=== PATIENT | female | born 1965 | race Caucasian/White ===

== ENCOUNTER 2017-05-23 21:00 | Observation (INO) | payer SELFPAY ==
--- NOTE | ~2017-05-23 | HP ---
History And Physical [place] [id number] [facility] [place] [place]. [address] NAME: ILYA BROOKS : 65 STATUS : ADM Loulou PAT#: [id number] AGE: 52 ADM/REG DATE : 05/23/17 MR#: [id number] REPORT SERV DATE: 05/24/17 DICTATED BY: SHANIKA SOLIS DATE: 05/23/17 REPORT STATUS : Draft TRANSCRIBED BY: MODL DATE: 05/23/17 DATE OF ADMISSION: 05/23/2017 CHIEF COMPLAINT: A 52-year-old female presenting with vertigo, confusion, and left-sided weakness. HISTORY OF PRESENTING ILLNESS: The patient's history was obtained through careful interview with the patient and sister, coupled with review of [facility] medical records. The patient states that for about a week, she has had symptoms on and off. One of her main symptoms has been anxiety as well as fatigue and lack of energy. She has also had intermittent lightheaded spells and vertigo. Today, she had vertigo that became debilitating to the point where she could not even sit up. She describes nausea and vomiting today, a headache mostly felt in her forehead about 8 to 10 out of 10 severity that comes and goes. On the day prior to admission, she had a spell, where she had dysarthria and became intermittently confused. She has also had intermittent left-sided weakness, but no facial droop. For about a week, now she has had blurry vision on and off as well, but no double vision and no change in vision at this time. REVIEW OF SYSTEMS: Otherwise, a 14-point review of systems was obtained and was negative. PAST MEDICAL HISTORY: 1. Depression and anxiety. 2. Hiatal hernia. 3. Neuropathy. 4. No cardiac disease. No lung disease. PAST SURGICAL HISTORY: Tubal ligation. ALLERGIES: NO KNOWN DRUG ALLERGIES. SOCIAL HISTORY: Is . Lives alone. Works in [employer] at [place]. Has children. The patient is a smoker. Quit alcohol more than a year ago. FAMILY HISTORY: Stroke. CURRENT MEDICATIONS: Include Cogentin 2 mg p.o. b.i.d., BuSpar 10 mg p.o. t.i.d., Prozac 40 mg p.o. daily, Neurontin 600 mg p.o. four times a day, naltrexone 50 mg p.o. daily, and History And Physical [address] [address] NAME: ILYA BROOKS : 65 STATUS : ADM Loulou PAT#: [id number] AGE: 52 ADM/REG DATE : 05/23/17 MR#: [id number] REPORT SERV DATE: 05/24/17 DICTATED BY: SHANIKA SOLIS DATE: 05/23/17 REPORT STATUS : Draft TRANSCRIBED BY: MODKalpesh DATE: 05/23/17 Zyprexa 15 mg p.o. q.h.s. PHYSICAL EXAMINATION: VITAL SIGNS: Temperature 98.3, pulse 87, blood pressure 120/79, respiratory rate 20, O2 saturation 99% on room air. GENERAL: A pleasant, cooperative female, in no evidence of acute distress. NEUROLOGICAL: Cranial nerves 2 through 12 are intact and symmetrical. Slight right-sided nystagmus, 5/5 strength in upper and lower extremities that is symmetrical. HEENT: Pupils equal, round, and reactive to light. No conjunctival pallor. No scleral icterus. Nares are patent. Oropharynx is clear of obstruction. Moist mucous membranes. NECK: Trachea midline. No thyromegaly. LYMPH: No cervical lymphadenopathy. No supraclavicular lymphadenopathy. RESPIRATORY: Clear to auscultation at bases. No wheezes, rales, or rhonchi. Normal respiratory effort. CARDIOVASCULAR: Regular rate and rhythm. No murmurs, rubs, or gallops. No extremity edema is appreciated. ABDOMEN: Soft, nontender, nondistended. Normal bowel sounds auscultated throughout. No hepatosplenomegaly. DERMATOLOGICAL: Warm and dry. EXTREMITIES: No pallor, no cyanosis. PSYCHIATRIC: Normal affect. Good mood. Alert and oriented x3. LABORATORY DATA: White blood cell count 7.9, hemoglobin 14, hematocrit 41, platelets 301. Sodium 138, potassium 3.6, chloride 104, bicarb 27, BUN 8, creatinine 0.71, glucose 114. Troponin negative. Liver enzymes within normal limits. STUDIES: 1. Chest x-ray by my own evaluation shows no acute cardiopulmonary process. 2. EKG by my own evaluation shows sinus rhythm, no major abnormalities. 3. CT scan of the brain without contrast shows no acute intracranial process. ASSESSMENT AND PLAN: 1. Transient ischemic attack with vertigo, dysarthria, left-sided weakness, confusion, and blurry vision on and off over a period of about a week, but then worsened today. Start aspirin. Obtain Neurology consult. Check an MRI of the brain, MRA of the brain with MRA of the carotid arteries. Check an echocardiogram. Check fasting lipid panel. Check telemetry. 2. Tobacco abuse. Counseled abstinence. 3. Anxiety and depression. Continue home medications. MACRINA/JAMES Shanika Solis M.D. History And Physical [address] [address] NAME: ILYA BROOKS : 65 STATUS : ADM Loulou PAT#: [id number] AGE: 52 ADM/REG DATE : 05/23/17 MR#: [id number] REPORT SERV DATE: 05/24/17 DICTATED BY: SHANIKA SOLIS DATE: 05/23/17 REPORT STATUS : Draft TRANSCRIBED BY: JAMES DATE: 05/23/17 / [id number] CC: Tiffanie Little M.D.
--- NOTE | ~2017-05-23 | DS ---
Discharge Summary [facility] [address] [place]. [address] NAME: ILYA BROOKS : 65 STATUS : DIS Loulou PAT#: [id number] AGE: 52 ADM/REG DATE : 05/23/17 MR#: [id number] REPORT SERV DATE: 05/27/17 DICTATED BY: JOSEFA LOWRY DATE: 05/26/17 REPORT STATUS : Draft TRANSCRIBED BY: MODL DATE: 05/26/17 ADMISSION DATE: 05/23/2017 DISCHARGE DATE: 05/26/2017 HISTORY OF PRESENT ILLNESS: Ms. Brooks is a 52-year-old female with a history of depression and anxiety, who presented to the hospital with a complaint of vertigo and left-sided weakness. For further details, please refer to H and P dictated by Dr. Jose Foreman on 05/24/2017. HOSPITAL COURSE: Upon presentation to the hospital, the patient was admitted under Hospitalist Service with presumptive diagnosis of TIA. Neurology was subsequently consulted. For further details, please refer to consultation note by Neurology dictated by Dr. Holm on 05/25/2017. The patient had brain imaging including MRI of the brain and MRA, which were negative. A LUIS ARMANDO obtained was also negative. CT head without contrast was also negative. On physical exam, the patient has normal neurologic exam. Given the diagnosis of TIA, the patient was subsequently started on aspirin. Despite negative workup, the patient still complained of nausea and vertigo. There was concern for posterior circulation CVA; however, given normal physical exam and given normal MRI and MRA of the brain, that diagnosis was excluded. Likely etiology of her symptom is likely peripheral vertigo, specifically benign positional paroxysmal vertigo per Neurology standpoint. Recommend ENT followup as outpatient. Given conclusion of workup, we will have the patient evaluated by Physical Therapy for an Apley's maneuver and we will subsequently discharge the patient after that. Plan has been discussed with the patient, who voices understanding and is agreeable with this plan. DISCHARGE DIAGNOSES: 1. Benign paroxysmal positional vertigo. 2. Transient ischemic attack. 3. Nausea and vomiting. 4. Tobacco abuse. 5. Obesity. DISCHARGE PHYSICAL EXAMINATION: VITAL SIGNS: Blood pressure 118/71 with a pulse of 78, respirations 22, O2 saturation 95% on room air. GENERAL: The patient is sitting in chair, in no acute distress. Appears stated age. HEENT: Normocephalic, atraumatic. Extraocular motors intact. Moist oral mucosa. Pupils round and reactive to light and accommodation. Extraocular motors intact. Anicteric sclerae. No conjunctival injection. No pallor. NECK: Trachea midline and symmetric. No JVD noted. No thyromegaly present. No lymphadenopathy noted. CHEST: No scars noted. Nontender to palpation. CARDIOVASCULAR: Regular rate and rhythm. S1, S2. No murmurs, rubs, or gallops. LUNGS: Clear to auscultation bilaterally. ABDOMEN: Obese abdomen also noted. EXTREMITIES: No cyanosis, no clubbing, no edema. NEUROLOGIC: Alert and oriented x3. Cranial nerves 2 through 12 grossly intact. No focal Discharge Summary [address] [address] NAME: ILYA BROOKS : 65 STATUS : DIS Loulou PAT#: [id number] AGE: 52 ADM/REG DATE : 05/23/17 MR#: [id number] REPORT SERV DATE: 05/27/17 DICTATED BY: JOSEFA LOWRY DATE: 05/26/17 REPORT STATUS : Draft TRANSCRIBED BY: JAMES DATE: 05/26/17 deficits appreciated. DISCHARGE MEDICATIONS: 1. Aspirin 81 mg p.o. daily. 2. BuSpar 10 mg p.o. three times a day. 3. Prozac 40 mg p.o. daily. 4. Gabapentin 600 mg p.o. four times a day. 5. Olanzapine 15 mg p.o. at bedtime. 6. Cogentin 2 mg p.o. twice a day p.r.n. 7. Naltrexone 50 mg p.o. daily. DISPOSITION: The patient will be discharged home. ACTIVITY: As tolerated. DIET: Regular. FOLLOWUP: The patient to follow up outpatient with ENT and primary care physician. Of note, greater than 30 minutes was spent providing counseling, medication reconciliation, discussion of case with consultants, and discussion of case with nurses. DICTATED BY: MD ANU Preston/JAMES Josefa Lowry MD / [id number] CC: Josefa Lowry MD
--- NOTE | ~2017-05-23 | CN ---
Consultation Report [facility] [address] [place]. [address] NAME: ILYA BROOKS : 65 STATUS : ADM Loulou PAT#: [id number] AGE: 52 ADM/REG DATE : 05/23/17 MR#: [id number] REPORT SERV DATE: 05/25/17 DICTATED BY: DHARA HOLM DATE: 05/25/17 REPORT STATUS : Draft TRANSCRIBED BY: MODL DATE: 05/25/17 NEUROLOGICAL CONSULTATION/EVALUATION DATE OF CONSULTATION: 05/25/2017 HISTORY OF PRESENT ILLNESS: This is a 52-year-old female, who was admitted through the emergency room with complaints of dizziness, confusion, left-sided weakness, and headache. The patient stated her symptoms started approximately a week prior to admission and she describes them as having dizziness on and off. In addition, the patient has had increase of her anxiety and fatigue, which she described as complete lack of energy. The patient stated that she has been sleeping a lot and has been not feeling well. Neurological consultation was requested since the patient's symptoms continued despite the treatment. The patient's MRI of the brain, which was also reviewed by me, was normal, showing no evidence of acute or distant strokes or any other space-occupying lesion. No midline shift and no evidence of past injuries. MRA of neck and brain was also normal. The patient's symptoms persisted despite the treatment with Antivert and scopolamine patch. PAST MEDICAL HISTORY: Significant history of depression and anxiety. History of hiatal hernia? "Neuropathy." SURGICAL HISTORY: Tubal ligation. ALLERGIES: NO KNOWN ALLERGIES. SOCIAL HISTORY: The patient lives alone. Is . Works in [employer] at [place]. Denied any exposure to heavy chemicals or toxin. She has no children. The patient continues smoking. She stated that she stopped any alcohol use approximately a year ago. FAMILY HISTORY: The patient's mother 20 years ago and as the patient described, choked on the piece of meat. The patient has one sister whom she does not keep contact with. MEDICATIONS: Prior to admission included Prozac 40 mg p.o. daily, Neurontin 600 mg p.o. four times a day, Cogentin 2 mg p.o. b.i.d., naltrexone 50 mg p.o. daily, and Zyprexa 15 mg p.o. daily. REVIEW OF SYSTEMS: A 14-point review of systems was positive for fatigue, trouble focusing, and increased sleeping. The patient felt alienated. Denied suicidal ideations. Denied difficulty with her speech and swallowing. Has not had any significant changes in her bowel or bladder control and has no problem with it; however has had increase of menopausal symptoms with irritability, night sweats, and intolerance to changes of environmental temperature. The patient stated she used to have chronic headaches "migraines," stating the last headache she had was a year ago, for which she had received "Dilaudid" and that had helped the patient. Consultation Report [facility] [address] [place]. [address] NAME: ILYA BROOKS : 65 STATUS : ADM Loulou PAT#: [id number] AGE: 52 ADM/REG DATE : 05/23/17 MR#: [id number] REPORT SERV DATE: 05/25/17 DICTATED BY: DHARA HOLM DATE: 05/25/17 REPORT STATUS : Draft TRANSCRIBED BY: JAMES DATE: 05/25/17 GENERAL PHYSICAL EXAMINATION: VITAL SIGNS: Blood pressure 126/75, pulse of 79, respirations 19, and temperature is 97.9. HEAD AND NECK: Examination showed it to be normocephalic. There was no evidence of trauma. Auscultation of the neck showed no evidence of bruits. Eye exam, sclerae were not icteric. Conjunctivae were pink. ENT exam showed tongue to be of normal size. Palate elevated symmetrically and airway appeared patent. Mallampati class II. CHEST: Symmetrical. LUNGS: Clear to auscultation. HEART: Regular S1 and S2. No S3, S4, or gallops were noted. There were no bruits on auscultation of the neck. ABDOMEN: Soft and nontender. No organomegaly. EXTREMITIES: Show no clubbing or cyanosis. There was no peripheral edema. Peripheral pulses were normal. SKIN: Clear. NEUROLOGICAL EXAMINATION: MENTAL STATUS EXAM: The patient was alert and oriented to self, time, and place. Her speech was fluent. She appeared somnolent and frequently would doze off. Stated she had to concentrate to think about the medication list as she was asked about. Her speech was fluent. There was no evidence of aphasia or dysarthria. Her thought content and mood showed her to be perhaps mildly depressed. The patient denied suicidal ideations. CRANIAL NERVE EXAMINATION: 2 through 12, visual vargas to confrontation were intact. Funduscopic exam showed no evidence of papilledema, hemorrhages, or exudates. Extraocular movements were full. There was no nystagmus. No upward or downward gaze limitation was noted on exam. Facial sensation, muscles of mastication, and muscles of facial expression show no evidence of asymmetry or weakness. Hearing was intact bilaterally. Lower cranial nerves were intact. MOTOR EXAM: Muscle bulk and tone were normal. Strength was 5/5 throughout. Deep tendon reflexes were 2/2 throughout. Babinski signs were not elicitable. SENSORY EXAM: To pinprick, light touch, and vibration showed no evidence of deficits. The patient had conflicting answers of testing. Distal lower extremities appeared within normal range. CEREBELLAR EXAM: [id number], [id number], and rapid alternating movements were symmetrical and normal. Gait, as per the patient, she could not ambulate because of dizziness. LABORATORY STUDIES: Sodium 140, potassium 3.8, BUN 9, creatinine 0.96, glucose 117, calcium 9.2, magnesium 2.1. WBC count 5.9, hemoglobin 14.1, hematocrit 42.9, platelet count 260,000. TSH 1.67, BNP 13.9, CPK 298. PT/INR 1.1. MRI of the brain was reviewed by me. MRA of the neck and brain likewise were reviewed and they were all normal. IMPRESSION: The patient has a normal neurological exam. No evidence to suggest posterior circulation, transient ischemic attack, or a stroke. We are most likely dealing with peripheral vestibular dysfunction. In addition, the patient has history of depression and Consultation Report [address] [place]. [address] NAME: ILYA BROOKS : 65 STATUS : ADM Loulou PAT#: [id number] AGE: 52 ADM/REG DATE : 05/23/17 MR#: [id number] REPORT SERV DATE: 05/25/17 DICTATED BY: DHARA HOLM DATE: 05/25/17 REPORT STATUS : Draft TRANSCRIBED BY: MODL DATE: 05/25/17 anxiety, which may contribute to the patient's symptomatology. Menopausal symptoms, which contribute to the patient's fatigue, temperature intolerance, and sleep disturbance. I would recommend to rule out vitamin deficiency, B12 and folate deficiency which may contribute to dizziness. In addition, workup should include thyroid function profile and TSH, and monitor for any cardiac arrhythmias. Mild obesity. The patient was advised to lose weight and was counseled on stopping smoking, which constitutes a big risk for her stroke. The patient is on multiple medications that could contribute to her symptoms. The patient has been on Cogentin, Zyprexa, and Prozac. Recommend to follow with Psychiatry, and perhaps adjusting or changing the patient's medication may help her symptoms. Treat symptomatically. PT/OT to evaluate and treat. To follow with ENT. Thank you for allowing us to participate in this patient's care. CHRIS/JAMES Dhara Holm MD / [id number] CC: Escobar Borjas MD
[2017-05-23 19:51] LABS: BASOPHILS 0.4 %; BASOPHILS ABSOLUTE 0.03 10/3/uL (0.0-0.16); EOSINOPHILS 2.3 %; EOSINOPHILS ABSOLUTE 0.18 10/3/uL (0.0-0.53); HEMATOCRIT 40.8 % (36.0-48.0); HEMOGLOBIN 13.6 g/dL (12.0-16.0); IMMATURE GRANULOCYTES 0.1 %; IMMATURE GRANULOCYTES ABSOLUTE 0.01 10/3/uL (0.0-0.11); LYMPHOCYTES 33.8 %; LYMPHOCYTES ABSOLUTE 2.66 10/3/uL (0.67-4.30); MANUAL DIFF NO %; MEAN CORPUS HGB CONC 33.3 g/dL (32.0-36.0); MEAN CORPUSCULAR HEMOGLOB 28.6 pg (26.0-34.0); MEAN CORPUSCULAR VOLUME 85.9 fL (80-100); MEAN PLATELET VOLUME 9.3 fL (9.2-13.0); MONOCYTES 5.6 %; MONOCYTES ABSOLUTE 0.44 10/3/uL (0.21-1.20); NEUTROPHILS 57.8 %; NEUTROPHILS ABSOLUTE 4.56 10/3/uL (2.02-8.40); PLATELET COUNT 301 10/3/uL (150-400); RBC DISTRIBUTION WIDTH 16.6 % (12.0-16.0); RED CELL COUNT 4.75 10/6/uL (4.0-5.6); WHITE BLOOD CELLS 7.9 10/3/uL (4.5-10.5)
[2017-05-23 19:59] LABS: INTERNATIONAL NORMAL RATI 1.1 UNITS (-); PARTIAL THROMBO TIME 33.2 SEC (22.5-37.2); PROTIME (NOT ORD) 14.1 SEC (12.0-14.5)
[2017-05-23 20:07] LABS: A/G RATIO 0.9 (0.7-1.9); ALBUMIN 4.1 G/DL (3.5-5.0); BUN (BLOOD UREA NITROGEN) 8 MG/DL (6-23); CALCIUM, SERUM 9.6 MG/DL (8.5-10.4); CHLORIDE, SERUM 104 MMOL/L (96-112); CO2 (CARBON DIOXIDE) 27 MMOL/L (24-34); CREATININE 0.71 MG/DL (0.55-1.02); GFR AFRICAN AMERICAN 114 ML/MIN (>=60); GFR NON AFRICAN AMERICAN 98 ML/MIN (>=60); GLOBULIN 4.6 G/DL (2.5-4.1); POTASSIUM, SERUM 3.6 MMOL/L (3.5-5.3); SGOT(AST) 32 U/L (5-40); SGPT(ALT) 40 U/L (5-65); SODIUM, SERUM 138 MMOL/L (135-148); TOTAL BILIRUBIN 0.7 MG/DL (0-1.2); TOTAL PROTEIN 8.7 G/DL (6.0-8.5); TROPONIN I <0.02 NG/ML (<0.05)
[2017-05-23 20:08] LABS: ALKALINE PHOSPHATASE 110 U/L (45-117); GLUCOSE, SERUM 82 MG/DL (60-99)
[~2017-05-23 21:00] MED LIST: BUSPAR10 PO; COG2 PO; NALTREXONE50 MG PO
[2017-05-23] MEDS ORDERED: PROZAC40 MG PO (21:01)
[2017-05-23] MEDS ORDERED: NEUR300 PO (21:01)
[2017-05-23] MEDS ORDERED: ZYPREXA10 MG PO (21:02)
[2017-05-24 06:06] LABS: CHOL/HDL RATIO(NOT ORDER) 2.8 (0-5); CHOLESTEROL 169 MG/DL (< 200); CPK 298 U/L (0-200); HDL CHOLESTEROL 61 MG/DL (> 49); LDL CHOLESTEROL 86 MG/DL (< 130); NON-HDL CHOLESTEROL 108 MG/DL (< 160); TRIGLYCERIDE 113 MG/DL (< 150)
[2017-05-24 08:26] LABS: GLYCOHEMOGLOBIN (HbA1c) 5.5 % (4.7-6.1)
[2017-05-24 09:44] LABS: B NATRIURETIC PEPTIDE (BNP) 13.9 PG/ML (< 100.0)
[2017-05-24 11:09] LABS: ASCORBIC ACID (UR NOT ORDER) NEG (NEG); BILIRUBIN, URINE NEGATIVE (NEG); KETONE, URINE NEGATIVE (NEG); LEUKOCYTE ESTERASE(NOT OR LARGE (NEG); WBC (NOT ORDERED) (RFLEX) 10 (0-5)
[2017-05-24 11:30] LABS: AMPHETAMINES (NOT ORD) NEG (NEG); BARBITURATES (NOT ORDERED NEG (NEG); BENZODIAZEPINES (NOT ORD) NEG (NEG); CANNABINOIDS (THC) NEG (NEG); COCAINE (NOT ORDERED) NEG (NEG); OPIATES POS (NEG); PHENCYCLIDINE(PCP) NEG (NEG); TRICYCLICS NEG (NEG)
[2017-05-25 04:49] LABS: BASOPHILS 0.7 %; BASOPHILS ABSOLUTE 0.04 10/3/uL (0.0-0.16); EOSINOPHILS 4.1 %; EOSINOPHILS ABSOLUTE 0.24 10/3/uL (0.0-0.53); HEMATOCRIT 42.9 % (36.0-48.0); HEMOGLOBIN 14.1 g/dL (12.0-16.0); IMMATURE GRANULOCYTES 0.2 %; IMMATURE GRANULOCYTES ABSOLUTE 0.01 10/3/uL (0.0-0.11); LYMPHOCYTES 34.6 %; LYMPHOCYTES ABSOLUTE 2.04 10/3/uL (0.67-4.30); MEAN CORPUS HGB CONC 32.9 g/dL (32.0-36.0); MEAN CORPUSCULAR HEMOGLOB 28.7 pg (26.0-34.0); MEAN CORPUSCULAR VOLUME 87.4 fL (80-100); MEAN PLATELET VOLUME 9.3 fL (9.2-13.0); MONOCYTES 6.4 %; MONOCYTES ABSOLUTE 0.38 10/3/uL (0.21-1.20); NEUTROPHILS ABSOLUTE 3.19 10/3/uL (2.02-8.40); PLATELET COUNT 260 10/3/uL (150-400); RBC DISTRIBUTION WIDTH 16.8 % (12.0-16.0); RED CELL COUNT 4.91 10/6/uL (4.0-5.6); WHITE BLOOD CELLS 5.9 10/3/uL (4.5-10.5)
[2017-05-25 04:50] LABS: MANUAL DIFF NO %
[2017-05-25 05:02] LABS: A/G RATIO 0.8 (0.7-1.9); ALBUMIN 3.4 G/DL (3.5-5.0); BUN (BLOOD UREA NITROGEN) 9 MG/DL (6-23); CALCIUM, SERUM 9.2 MG/DL (8.5-10.4); CHLORIDE, SERUM 106 MMOL/L (96-112); CO2 (CARBON DIOXIDE) 27 MMOL/L (24-34); CREATININE 0.69 MG/DL (0.55-1.02); GFR AFRICAN AMERICAN 116 ML/MIN (>=60); GFR NON AFRICAN AMERICAN 100 ML/MIN (>=60); GLOBULIN 4.1 G/DL (2.5-4.1); POTASSIUM, SERUM 3.8 MMOL/L (3.5-5.3); SGOT(AST) 25 U/L (5-40); SGPT(ALT) 34 U/L (5-65); SODIUM, SERUM 140 MMOL/L (135-148); TOTAL BILIRUBIN 0.3 MG/DL (0-1.2); TOTAL PROTEIN 7.5 G/DL (6.0-8.5)
[2017-05-25 05:03] LABS: ALKALINE PHOSPHATASE 94 U/L (45-117); GLUCOSE, SERUM 117 MG/DL (60-99)
[2017-05-25 18:43] LABS: FREE T4 0.86 NG/DL (0.76-1.46)
[2017-05-25 18:45] LABS: FOLATE 26.4 NG/ML (>5.2)
[2017-05-26 04:40] LABS: BASOPHILS 0.5 %; BASOPHILS ABSOLUTE 0.03 10/3/uL (0.0-0.16); EOSINOPHILS 3.9 %; EOSINOPHILS ABSOLUTE 0.25 10/3/uL (0.0-0.53); HEMATOCRIT 44.4 % (36.0-48.0); HEMOGLOBIN 14.5 g/dL (12.0-16.0); IMMATURE GRANULOCYTES 0.2 %; IMMATURE GRANULOCYTES ABSOLUTE 0.01 10/3/uL (0.0-0.11); LYMPHOCYTES 33.5 %; LYMPHOCYTES ABSOLUTE 2.15 10/3/uL (0.67-4.30); MEAN CORPUS HGB CONC 32.7 g/dL (32.0-36.0); MEAN CORPUSCULAR HEMOGLOB 28.7 pg (26.0-34.0); MEAN CORPUSCULAR VOLUME 87.7 fL (80-100); MEAN PLATELET VOLUME 9.4 fL (9.2-13.0); MONOCYTES 8.3 %; MONOCYTES ABSOLUTE 0.53 10/3/uL (0.21-1.20); NEUTROPHILS 53.6 %; NEUTROPHILS ABSOLUTE 3.44 10/3/uL (2.02-8.40); PLATELET COUNT 283 10/3/uL (150-400); RBC DISTRIBUTION WIDTH 16.5 % (12.0-16.0); RED CELL COUNT 5.06 10/6/uL (4.0-5.6); WHITE BLOOD CELLS 6.4 10/3/uL (4.5-10.5)
[2017-05-26 04:44] LABS: MANUAL DIFF NO %
[2017-05-26 04:49] LABS: A/G RATIO 0.8 (0.7-1.9); ALBUMIN 3.6 G/DL (3.5-5.0); ALKALINE PHOSPHATASE 97 U/L (45-117); BUN (BLOOD UREA NITROGEN) 11 MG/DL (6-23); CALCIUM, SERUM 9.5 MG/DL (8.5-10.4); CHLORIDE, SERUM 104 MMOL/L (96-112); CO2 (CARBON DIOXIDE) 29 MMOL/L (24-34); CREATININE 0.66 MG/DL (0.55-1.02); GFR AFRICAN AMERICAN 118 ML/MIN (>=60); GFR NON AFRICAN AMERICAN 102 ML/MIN (>=60); GLOBULIN 4.3 G/DL (2.5-4.1); POTASSIUM, SERUM 4.1 MMOL/L (3.5-5.3); SGOT(AST) 21 U/L (5-40); SGPT(ALT) 34 U/L (5-65); SODIUM, SERUM 138 MMOL/L (135-148); TOTAL BILIRUBIN 0.4 MG/DL (0-1.2); TOTAL PROTEIN 7.9 G/DL (6.0-8.5)
[2017-05-26 04:52] LABS: GLUCOSE, SERUM 87 MG/DL (60-99)
[2017-05-26] MEDS ORDERED: ASAB (14:43)
== END 2017-05-26 14:56 | disposition home or self-care (01) ==
LOC: ER 21:00 → CDU1 22:21 → CDU2 22:59
PROVIDERS: Hospitalist; Specialist
DX: H81.10 Benign paroxysmal vertigo, unspecified ear (principal); F41.8 Other specified anxiety disorders; K44.9 Diaphragmatic hernia without obstruction or gangrene; G62.9 Polyneuropathy, unspecified; F17.290 Nicotine dependence, other tobacco product, uncomplicated; E66.9 Obesity, unspecified; Z68.34 Body mass index [BMI] 34.0-34.9, adult; Z98.51 Tubal ligation status; Z82.3 Family history of stroke; Z79.899 Other long term (current) drug therapy
CPT/HCPCS: 70450; 70544; 70548; 70551-52; 71020; 80053; 80061; 80305; 81001; 82550; 82607; 82652; 82746; 82962; 83036; 83735; 83880; 84439; 84443; 84481; 84484; 85025; 85610; 85652; 85730; 87086; 93005; 93306; 96372; 96374; 96375; 96376; 97161-GP; 99285; A9270-GY; A9577; G0378; J2405; J2765; J3475